=== PATIENT | female | born 1970 | race Asian ===

== ENCOUNTER 2016-12-17 16:05 | Emergency (ER) | payer BC, OTHER ==
[~2016-12-17] VITALS: Ht 157.5 cm; Wt 65.0 kg
[2016-12-17 16:14] VITALS: Ht 157.5 cm; Wt 65.0 kg
--- NOTE | 2016-12-17 17:20 | ERD ---
ER Documentation Chief Complaint Date/Time DATE: 12/17/16 TIME: 17:[address], SEND TO DRAIN PERITONSILAR ABCESS HPI This is a 46-year-old female presenting to emergency department with sore throat and peritonsillar abscess. Patient states she went to her primary care provider 4 days ago and was prescribed amoxicillin for possible strep throat. Patient states since then she has had worsening sore throat and fever of 10 3F max at home. Patient states she went to urgent care yesterday and was told to go to the ER for drainage of peritonsillar abscess. Patient has muffled voice and trismus. No difficulty swallowing. No drooling. No shortness of breath or difficulty breathing. ROS All systems reviewed and are negative except as per history of present illness. Medications Home Meds Active Scripts Ibuprofen* (Motrin*) 600 Mg Tab, 600 MG PO Q6, #15 TAB Prov:DELIA BEDOLLA NP 12/17/16 Hydrocodone/Acetaminophen ([place] 5-325 Tablet) 1 Each Tablet, 1 TAB PO Q6H Y for PAIN, #10 TAB Prov:DELIA BEDOLLA NP 12/17/16 Clindamycin Hcl* (Clindamycin Hcl*) 300 Mg Capsule, 300 MG PO TID for 10 Days, CAP Prov:DELIA BEDOLLA NP 12/17/16 Allergies Allergies: Coded Allergies: No Known Allergy (Unverified , 12/17/16) PMhx/Soc History of Surgery: Yes () Hx Miscellaneous Medical Probl: Yes (Hypothyroidism) Physical Exam Vitals Vital Signs Date Time Temp Pulse Resp B/P Pulse Ox O2 Delivery O2 Flow Rate FiO2 12/17/16 16:14 98.1 74 18 126/74 99 Physical Exam Const: Alert, muffled voice Head: Atraumatic Eyes: Normal Conjunctiva ENT: Enlarged and fluctuant right tonsil with deviation of uvula to left side. Fullness and bulging of posterior soft palate. No drooling. No exudate. Neck: Full range of motion..~ No meningismus. Resp: Clear to auscultation bilaterally. No stridor or labored breathing. Cardio: Regular rate and rhythm, no murmurs Abd: Soft, non tender, non distended. Normal bowel sounds Skin: No petechiae or rashes Back: No midline or flank tenderness Ext: No cyanosis, or edema Neur: Awake and alert Psych: Normal Mood and Affect Result Diagram: 12/17/16 1724 12/17/16 1724 Results 24 hrs Laboratory Tests Test 12/17/16 17:24 White Blood Count 15.210^3/ul Red Blood Count 4.2110^6/ul Hemoglobin 13.3g/dl Hematocrit 38.8% Mean Corpuscular Volume 92.2fl Mean Corpuscular Hemoglobin 31.6pg Mean Corpuscular Hemoglobin Concent 34.3g/dl Red Cell Distribution Width 12.2% Platelet Count 62052^3/UL Mean Platelet Volume 11.3fl Neutrophils % 83.5% Lymphocytes % 6.7% Monocytes % 8.5% Eosinophils % 0.1% Basophils % 0.3% Nucleated Red Blood Cells % 0.0/100WBC Neutrophils # 12.710^3/ul Lymphocytes # 1.010^3/ul Monocytes # 1.310^3/ul Eosinophils # 0.010^3/ul Basophils # 0.010^3/ul Nucleated Red Blood Cells # 0.010^3/ul Sodium Level 141mmol/L Potassium Level 3.5mmol/L Chloride Level 97mmol/L Carbon Dioxide Level 27mmol/L Anion Gap 21 Blood Urea Nitrogen 13mg/dl Creatinine 0.66mg/dl Glucose Level 111mg/dl Calcium Level 9.3mg/dl Current Medications Medications (Trade) Dose Ordered Sig/[place] Route PRN Reason Start Time Stop Time Status Last Admin Dose Admin Lidocaine/ Epinephrine 30 ml 30 ml ONCE STAT INJ 12/17/16 17:35 12/17/16 18:07 DC Clindamycin HCl/ Dextrose (Cleocin 600 Mg/ D5W (Pmx)) 50 ml @ 50 mls/hr ONCE IVPB 12/17/16 18:00 12/17/16 18:59 DC 12/17/16 18:34 Lidocaine/ Epinephrine (Xylocaine 2%/ Epi Mpf(Sdv)) 20 ml ONCE ONCE INJ 12/17/16 18:30 12/17/16 18:31 DC Procedures/MDM MDM: This is a 46-year-old female presenting to emergency department with sore throat and peritonsillar abscess. Patient was sent to the ER by urgent care to have peritonsillar abscess drained. Patient has been taking amoxicillin at home prescribed by her primary care provider. Spoke and consulted with Dr. Molina, the regional vice president life sales ENT specialist. Dr. Molina came into ER to examine patient and performed the incision and drainage. Patient tolerated procedure well. Patient given Clindamycin 600mg IVPB and tolerated medication. Patient remains stable. Vitals are stable. Diagnosis is peritonsillar abscess. Patient is appropriate for outpatient management will be given prescription for clindamycin 300 mg 3 times daily 10 days, [place] 5/325 mg #10 and ibuprofen 400 mg #15. Instructed patient to follow-up with PCP and Dr. Molina in the next 2- 3 days for reassessment. Return to ED for any high fever, chest pain, difficulty breathing, shortness breath, wheezing, vomiting, diarrhea, abdominal pain or any new or worsening symptoms. Patient verbalizes understanding. All questions answered at discharge. Departure Diagnosis: Primary Impression: Peritonsillar abscess Condition: Stable DELIA BEDOLLA NP Dec 17, 2016 17:20
[2016-12-17] MEDS ORDERED: LIDOCAINE 1%/EPI 30 ML INJ INJ STA (17:35)
[2016-12-17 17:42] LABS: BASOPHILS % 0.3 % (0.0-2.0); EOSINOPHILS % 0.1 % (0.0-7.0); HEMATOCRIT 38.8 % (37.0-47.0); HEMOGLOBIN 13.3 g/dl (12.0-16.0); LYMPHOCYTES % 6.7 % (15.0-51.0); MEAN CORPUSCULAR HEMOGLOBIN 31.6 pg (29.0-33.0); MEAN CORPUSCULAR HGB CONC 34.3 g/dl (32.0-37.0); MEAN CORPUSCULAR VOLUME 92.2 fl (82.0-101.0); MEAN PLATELET VOLUME 11.3 fl (7.4-10.4); MONOCYTE # 1.3 10^3/ul (0.3-0.9); MONOCYTES % 8.5 % (0.0-11.0); NEUTROPHIL # 12.7 10^3/ul (1.6-7.5); NEUTROPHILS % 83.5 % (39.0-77.0); PLATELET COUNT 243 10^3/UL (140-415); RED BLOOD COUNT 4.21 10^6/ul (4.20-5.40); RED CELL DISTRIBUTION WIDTH 12.2 % (11.5-14.5); WHITE BLOOD COUNT 15.2 10^3/ul (4.8-10.8)
[2016-12-17] MEDS ORDERED: CLINDAMYCIN 600 MG/D5W (PMX) 50 ML IVPB SCH (18:00)
[2016-12-17 18:10] LABS: CALCIUM 9.3 mg/dl (8.4-10.2); CREATININE 0.66 mg/dl (0.44-1.00); POTASSIUM 3.5 mmol/L (3.5-5.1)
[2016-12-17] MEDS ORDERED: IBUP-1542 PO (18:22)
[2016-12-17] MEDS ORDERED: CLIN-73 PO (18:22)
[2016-12-17] MEDS ORDERED: HYDR-906 PO (18:22)
[2016-12-17] MEDS ORDERED: LIDOCAINE 2%/EPI MPF (SDV) 20 ML VIAL INJ ONE (18:30)
[2016-12-17 18:45] VITALS: BP 115/65; PULSE 74; RESP 18; TEMP 98.4
--- NOTE | 2016-12-19 07:40 | HP ---
DATE OF ADMISSION: 12/17/2016 CHIEF COMPLAINT: Pharyngeal abscess. HISTORY OF PRESENT ILLNESS: The patient presents with a 4-day history of chlorozotocin, office medical management of amoxicillin. PAST MEDICAL HISTORY: Unremarkable. PAST SURGICAL HISTORY: None noted. MEDICATION: Amoxicillin. ALLERGIES: NO KNOWN DRUG ALLERGIES. REVIEW OF SYSTEMS: As per history of present illness. PHYSICAL EXAMINATION: GENERAL: Well-developed, well-nourished female in no acute distress. ENT: [____] Pharyngeal cavity demonstrates a right pharyngeal abscess. NECK: Supple. Full range of motion. No masses noted. ASSESSMENT: Right pharyngeal abscess. RECOMMENDATIONS: Incision and drainage of the neck. Dictated By: Chito Molina MD /alberto/cathleen /Document#: [id number]
--- NOTE | 2016-12-19 07:40 | OPR ---
DATE OF OPERATION: 12/17/2016 REASON FOR CONSULT: Pharyngeal abscess. PREOPERATIVE DIAGNOSIS: Pharyngeal abscess. POSTOPERATIVE DIAGNOSIS: Pharyngeal abscess. PROCEDURE PERFORMED: Incision and drainage of pharyngeal abscess. DATE OF PROCEDURE: 12/17/2016. INDICATION: Pharyngeal abscess on the right side. DESCRIPTION: The patient was placed on the table after infiltration of 10 mL of 1% lidocaine with epinephrine. An 11 blade was used to make and incision over the abscessed area. Blunt dissection was performed, allowing release of the abscess pocket. No bleeding was noted at termination of the procedure. The patient was started on antibiotics and discharged home with follow-up instructions. Dictated By: Chito Molina MD /alberto/cathleen /Document#: [id number]
== END 2016-12-17 18:50 | disposition home or self-care (01) ==
LOC: FTE 16:05
DX: J36 Peritonsillar abscess (principal); E03.9 Hypothyroidism, unspecified
CPT/HCPCS: 80048; 85025; 96374